=== PATIENT | female | born 1960 | race Caucasian/White ===

== ENCOUNTER 2018-08-12 14:11 | Emergency (ER) | payer OTHER ==
[~2018-08-12] VITALS: Ht 165.1 cm; Wt 85.3 kg
[2018-08-12 14:15] VITALS: BP 149/77
--- NOTE | 2018-08-12 14:21 | NUR ---
58 Y/O F BIB DAUGHTER W/C/O RIGHT THUMB PAIN. PT STATES SHE WAS TRIMMING HER NAILS PRIOR TO PAIN STARTING. THUMB IS EDEMATOUS, HOT TO TOUCH WITH WHITE EXUDATE UNDER SKIN. PT DENIES N/V/D; AAOX4, PERRL, WITH EVEN AND STEADY GAIT; LUNGS CLEAR BL, BREATHING UNLABORED; HR EVEN AND REGULAR, BL PERIPHERAL PULSES PRESENT; BS ACTIVE X4, NO TENDERNESS TO PALPATION, NO HEPATOSPLENOMEGALLY PALPATED, RESONANT TO PERCUSSION; PT DENIES ANY FEVER, CP, SOB, OR COUGH AT THIS TIME; PT STATES 9/10 PAIN AT THIS TIME; VSS; PATIENT POSITIONED FOR COMFORT; HOB ELEVATED; BEDRAILS UP X2; BED DOWN.
[2018-08-12] MEDS ORDERED: CEPHALEXIN 500 MG CAP PO ONE (14:35)
[2018-08-12 14:53] VITALS: BP 135/72
== END 2018-08-12 14:54 | disposition home or self-care (01) ==
LOC: MED 14:11
DX: L03.011 Cellulitis of right finger (principal)
CPT/HCPCS: 99283